=== PATIENT | female | born 1990 | race Two or more races ===

== ENCOUNTER 2025-05-19 11:47 | Emergency (ER) | payer MEDICAID, SELFPAY ==
[2025-05-19 11:54] VITALS: BP 120/81; PULSE 45; RESP 18; TEMP 36.4; O2SAT 99; BMI 26.4
--- NOTE | 2025-05-19 12:05 | EDNOTE_ITS ---
ED Abdominal Pain RME/HPI General Chief Complaint: Abdominal Pain Stated complaint: SITE OPENED UP PER PT. Time seen by provider: 05/19/25 11:51 Arrival date/time: 05/19/25 11:47 34-year-old female patient came in for evaluation regarding possible wound dehiscence. Patient had a section done in [facility], 8 days ago this morning patient noticed serous drainage from the right side of the incision. She looked at it and small opening was noted. Patient denies any abdominal pain denies any fever no vomiting no other complaints noted Related Data Home Medications ?Medication ?Instructions ?Recorded ?Confirmed [id number] 1 mg 1 tab PO QDAY 2 08/30/21 tablet Previous Rx's ?Medication ?Instructions ?Recorded cephalexin 500 mg tablet 500 mg PO TID #21 tabs 08/30 cephalexin 500 mg capsule 500 mg PO TID 7 days #21 cap s 05/19/25 Allergies Allergy/AdvReac Type Severity Reaction Status Date / Time latex Allergy Severe Redness of Verified 05/19/25 11:50 Skin Review of Systems Review of Systems Narrative Review of Systems: Review of system reviewed and within normal limits except mentioned in HPI ED Exam Narrative Physical exam: VITAL SIGNS: Reviewed. GENERAL APPEARANCE: Alert and interactive, follows commands, no acute distress, HEAD AND FACE: Non-traumatic. ENT: PERRL, pink conjunctivitis, eyelid no trauma, Mucous membrane moist. NECK: Supple, nontender, no nuchal rigidity. CHEST: No tenderness, no crepitus, no paradoxical movement, no retractions. LUNGS: Clear, well ventilated, symmetric, no rales, no wheezing, no ronchi, no stridor, good breath sounds bilaterally. HEART: Regular rate, regular rhythm, no murmur, no gallops. ABDOMEN: Soft, positive bowel sounds, nondistended, no guarding, nontender, no rebound, no masses, status post section, 0.5 cm wound dehiscence noted on the right side of the incision, no drainage noted no redness noted nonfluctuant RECTAL: Deferred. GENITAL: Deferred. NEUROLOGICAL: Gross motor function intact sensory function intact, Appropriate for age. MUSCULOSKELETAL: low back nontender, full range of motion. EXTREMITIES: Nontender, full range of motion. SKIN: Color pink, dry, no rash, no lacerations, no abrasions, no contusions. LYMPHATICS: Deferred. Course Quality Measures none Orders Category Date Time Status cephALEXin [Keflex] Med 05/19/25 11:58 Discontinued 500 mg PO X1 ONE Vital Signs Vital signs: Vital Signs Temperature 97.6 F 05/19/25 11:54 Pulse Rate 45 L 05/19/25 11:54 Respiratory Rate 18 05/19/25 11:54 Blood Pressure 120/81 05/19/25 11:54 Pulse Oximetry (%) 99 05/19/25 11:54 Oxygen Delivery Method Room Air 05/19/25 11:54 Abdominal Pain MDM MDM Narrative MDM Narrative:: 34-year-old female patient came in for evaluation regarding possible wound dehiscence. Patient had a section done in [facility], 8 days ago this morning patient noticed serous drainage from the right side of the incision. She looked at it and small opening was noted. Patient denies any abdominal pain denies any fever no vomiting no other complaints noted Patient was started on Keflex for small wound dehiscence mild cellulitis. Patient was advised to see [facility] in the morning . Patient agrees with the plan stable for discharge home workup or imaging is not needed at this time. Patient data External records reviewed:: None Clinical information provided by:: patient Social determinants that could affect healthcare access:: none Patient has the following chronic illnesses:: None How is presenting disease/condition affected by chronic disease/condition?: no chronic disease Evaluation data The following diagnostics were reviewed and interpreted by me:: other (specify) (None) Lab and/or radiology exams considered but not ordered:: None none Interpretation Summary: None Medications / Prescriptions Medications or Prescriptions considered but not ordered:: none Medication administrations:: Medication Administration History Discontinued Medications Cephalexin HCl (Cephalexin 250 Mg Capsule) 500 mg PO X1 ONE Stop: 05/19/25 11:59 Keflex Consultations Consultation(s) initiated? (list below): No Diagnosis Differential diagnosis abdominal pain: abdominal pain and other (Cellulitis, surgical site infection, wound dehiscence) Most likely diagnosis given after review of the tests above:: Wound dehiscence status post section Admission Indicated Admission indicated?: not indicated Admission Request Was there a request for admission?: No Disposition Plan Disposition Plan: Discharge Discharge Attestation Discharge Attestation: The patient was given an opportunity to ask questions and understood the discharge instructions. Discharge instructions specifically effects, indications for sooner follow up or return to the emergency department, and the expected course of current diagnosis. Patient condition: Stable Discharge Plan Plan Patient Disposition: HOME (Self Care) Discharge Disposition comment: Stable Prescriptions/Referrals Prescriptions/Med Rec: New cephalexin 500 mg capsule 500 mg PO TID 7 Days Qty: 21 0RF No Action 1 mg Tablet 1 tab PO QDAY cephalexin 500 mg tablet 500 mg PO TID Qty: 21 0RF Problem List Clinical Impression: Postoperative wound dehiscence Patient/Caregiver Discharge Instructions Discharge Activity: activity as tolerated Education Materials: ED Post Op Wound Check, Infection Additional Instructions: Thank you for the opportunity for serving you today. You are stable for discharged . You are advised to: Follow-up with your [facility] in 1 to 2 days Return to ED for worsening of symptoms Increase oral fluids Take medication as prescribed Print Language: Zambian Stand Alone Forms: Sujey Award Info., Patient Portal Info Letter JULIANE/VIGNESH Supervising Physician BELEN Supervising Physician: MD Magaly
== END 2025-05-19 12:19 | disposition home or self-care (01) ==
LOC: SERX 12:24
PROVIDERS: Emergency Provider Family Medicine
DX: O90.0 Disruption of cesarean delivery wound (principal)
CPT/HCPCS: 99281; A9270